=== PATIENT | female | born 1980 | race Caucasian/White ===

== ENCOUNTER 2017-08-31 09:10 | Outpatient (CLI) | payer MEDICAID ==
[~2017-08-31] VITALS: Ht 157.5 cm; Wt 73.3 kg
[~2017-08-31 09:10] MED LIST: CA C1TAB60 PO; FOL8 PO; METH250T PO; PRENATAL VITAMIN
[2017-08-31 09:31] VITALS: BP 110/62; PULSE 70; RESP 18; Ht 157.5 cm; Wt 73.3 kg
--- NOTE | 2017-08-31 10:06 | RADRPT ---
PROCEDURE: US OB biophysical profile. CLINICAL INDICATION: decreased movements, GDM TECHNIQUE: Multiple sonographic images of the pelvis were obtained. The images were reviewed on a PACS workstation. COMPARISON: No prior studies are available for comparison. FINDINGS: There is a single viable intrauterine gestation. Cardiac activity is present with 129 beats per min [place]. There is a vertex presentation. The placenta is anterior. There is no evidence of placental abruption. There is a normal amount of amniotic fluid with an AKI = 16.2 cm. Biophysical profile: movement 2/2 tone 2/2. breathing 2/2 AKI 2/2 Total 05/05 RPTAT: AA . IMPRESSION: Normal biophysical profile. . .Jethro Skaggs MD, MD Date Time Electronically viewed and signed by .Jethro Skaggs MD, MD on 08/31/2017 10:05 .S/
--- NOTE | 2017-08-31 11:21 | PN ---
Triage Information Date/Time Reason for visit: NST BPp Weeks of Gestation 33+ /Para 2/1 Diabetes: none, pre-gestational, gestational Diabetes management: diet controlled Hypertention: none Objective Vital Signs Date Time Temp Pulse Resp B/P Pulse Ox O2 Delivery O2 Flow Rate FiO2 08/31/17 09:31 70 18 110/62 Heart Rate: 140's Contractions: None Results/Medications Results 24 hrs Laboratory Tests Test 08/31/17 09:27 Bedside Glucose 110 Disposition: Discharge Assessment/Plan Patient will be followed up with her provider Precautions discussed with patient DALTON ENAMORADO M.D. Aug 31, 2017 11:21
--- NOTE | 2017-08-31 12:37 | TRIAGE ---
OB Triage Datetime Report Generated by CPN: 08/31/2017 12:37 Datetime: 08/31/2017 11:06 Stage of : OB Triage Datetime: 08/31/2017 10:19 Labor Evaluation Frequency: 0 Monitor Mode: External Pattern: Normal: <= 5 Contractions in 10 Minutes Resting Tone [place]: Relaxed Heart Rate FHR Baseline Rate: 135 Monitor Mode: External US Variability: Moderate 6-25 bpm Accelerations: 10X10 Decelerations: None Category: Category I Pain Assessment Pain Scale: 0 Pain Presence: None/Denies Pain Type: N/A Pain Goal: 3 Pain Relief Measures: Comfort Measures Datetime: 08/31/2017 10:13 Stage of : OB Triage Datetime: 08/31/2017 09:31 Bedside Blood Glucose: 110 Datetime: 08/31/2017 09:18 Stage of : OB Triage Assessment Type: Triage EGA: 33.1 Maternal Assessment Level of Consciousness: Fully Conscious DTR's/Clonus: DTRs 2+; No Clonus Headache: Denies Blurred Vision: No Respiratory Effort: Unlabored; Regular Rhythm; Equal Expansion Breath Sounds, Left: Clear and Equal Breath Sounds, Right: Clear and Equal Nausea/Vomiting: Denies RUQ Epigastric Pain: Denies Facial Edema: None Temperature Route: Axillary Fall Risk Assessment History of Falling: (0) No Secondary Diagnosis: (0) No Ambulatory Aid: (0) Bedrest/Nurse Assist IV Therapy: (0) No Gait: (0) Normal/Bedrest/Immobile Mental Status: (0) Oriented to Own Ability Fall Score: 0 Fall Risk Score Definition: No Risk: No action required Labor Evaluation Frequency: 0 Monitor Mode: External Pattern: Normal: <= 5 Contractions in 10 Minutes Resting Tone [place]: Relaxed Heart Rate FHR Baseline Rate: 135 Monitor Mode: External US Variability: Moderate 6-25 bpm Accelerations: 10X10 Decelerations: None Category: Category I Pain Assessment Pain Scale: 0 Pain Presence: None/Denies Pain Type: N/A Pain Goal: 3 Pain Relief Measures: Comfort Measures Datetime: 08/31/2017 09:16 Time of Arrival: 08/31/2017 08:56 Arrived By: Ambulatory Arrived From: Dr. Juan Chief Complaint: SENT FROM OFFICE ON 08/27 FOR NST/BPP DUE TO A1GDM. DENIES LEAKING, UC'S OR BLEE DING Movement: Present Contractions: Denies/Absent Rupture of Membranes: Denies Vaginal Bleeding: None Vaginal Discharge: Denies Recent Sexual Intercouse: Denies Abdominal Trauma: Not Applicable Patient Complaints: None Additional Patient Complaints: cerclage placed 04/16/17 Time Provider Notified: 08/31/2017 11:06 Provider Notified: FEI Initial Plan: MONITOR, BPP/NST
== END 2017-08-31 11:25 | disposition home or self-care (01) ==
LOC: OBT 09:10 → L-D 09:10 → OBT 11:25
PROVIDERS: ATTEND Obstetrics & Gynecology
DX: O24.410 Gestational diabetes mellitus in pregnancy, diet controlled (principal); Z3A.33 33 weeks gestation of pregnancy
CPT/HCPCS: 76818; 82962; Z7500; G0463

== ENCOUNTER 2017-09-07 09:07 | Outpatient (CLI) | payer MEDICAID ==
[~2017-09-07] VITALS: Ht 157.5 cm; Wt 73.7 kg
[2017-09-07 09:18] VITALS: BP 103/69; PULSE 69; Ht 157.5 cm; Wt 73.7 kg
--- NOTE | 2017-09-07 09:54 | RADRPT ---
PROCEDURE: Obstetrical ultrasound for biophysical profile CLINICAL INDICATION: Biophysical profile. . TECHNIQUE: Obstetrical ultrasound of the uterus for biophysical profile. Transabdominal views are obtained. COMPARISON: US PELVIS 08/31/2017 FINDINGS: Single intrauterine gestation. Presentation: Cephalic. Placenta: Anterior. No evidence of placental abruption. No evidence of placenta previa. breathing movement = 2/2 tone = 2/2 motion = 2/2 AKI = 2/2 AKI = 16.8 cm heart rate: 144 beats per minute IMPRESSION: Single intrauterine gestation. Biophysical profile 05/05 RPTAT: AADD .Ralph Kruse MD, MD Date Time Electronically viewed and signed by .Ralph Kruse MD, on 09/07/2017 09:54 .B/
--- NOTE | 2017-09-07 10:19 | PN ---
Triage Information Date/Time Reason for visit: NST BPP Weeks of Gestation 34+ /Para 2/1 Diabetes: gestational Diabetes management: diet controlled Hypertention: none Objective Vital Signs Date Time Temp Pulse Resp B/P Pulse Ox O2 Delivery O2 Flow Rate FiO2 09/07/17 09:18 98.0 69 103/69 Heart Rate: 140's Contractions: None Disposition: Discharge Assessment/Plan Precautions discussed with patient DALTON ENAMORADO M.D. Sep 07, 2017 10:19
--- NOTE | 2017-09-07 10:29 | TRIAGE ---
OB Triage Datetime Report Generated by CPN: 09/07/2017 10:29 Datetime: 09/07/2017 10:14 Stage of : OB Triage Datetime: 09/07/2017 10:08 Labor Evaluation Frequency: 0 Monitor Mode: External Resting Tone [place]: Relaxed Heart Rate FHR Baseline Rate: 135 Monitor Mode: External US Variability: Moderate 6-25 bpm Accelerations: 10X10 Decelerations: None Category: Category I Pain Assessment Pain Scale: 0 Pain Presence: None/Denies Pain Type: N/A Pain Goal: 3 Pain Relief Measures: Comfort Measures Datetime: 09/07/2017 10:04 Stage of : OB Triage Datetime: 09/07/2017 09:14 Stage of : OB Triage Assessment Type: Triage Maternal Assessment Level of Consciousness: Fully Conscious DTR's/Clonus: DTRs 2+; No Clonus Headache: Denies Blurred Vision: No Respiratory Effort: Unlabored; Regular Rhythm; Equal Expansion Breath Sounds, Left: Clear and Equal Breath Sounds, Right: Clear and Equal Nausea/Vomiting: Denies RUQ Epigastric Pain: Denies Facial Edema: None Temperature Route: Axillary Fall Risk Assessment History of Falling: (0) No Secondary Diagnosis: (0) No Ambulatory Aid: (0) Bedrest/Nurse Assist IV Therapy: (0) No Gait: (0) Normal/Bedrest/Immobile Mental Status: (0) Oriented to Own Ability Fall Score: 0 Fall Risk Score Definition: No Risk: No action required Labor Evaluation Frequency: X1 Monitor Mode: External Duration (sec)2399: 50 Quality: Mild Pattern: Normal: <= 5 Contractions in 10 Minutes Intensity IUP (mmHg): DENIES FEELING Resting Tone [place]: Relaxed Heart Rate FHR Baseline Rate: 135 Monitor Mode: External US Variability: Moderate 6-25 bpm Accelerations: 10X10 Decelerations: None Category: Category I Pain Assessment Pain Scale: 0 Pain Presence: None/Denies Pain Type: N/A Pain Goal: 3 Pain Relief Measures: Comfort Measures Datetime: 09/07/2017 09:13 Time of Arrival: 09/07/2017 09:00 EGA: 34.1 Arrived By: Ambulatory Arrived From: Home Chief Complaint: FOLLOW UP NST/BPP FOR GDM, DENIES BLEEDING OR LEAKING OF FLUID. OCCAS UC'S Movement: Present Contractions: Occasional Rupture of Membranes: Denies Vaginal Bleeding: None Vaginal Discharge: Denies Recent Sexual Intercouse: Denies Abdominal Trauma: Not Applicable Patient Complaints: None Additional Patient Complaints: CERCLAGE PLACED IN MARCH Time Provider Notified: 09/07/2017 10:04 Provider Notified: [email or web address] Initial Plan: MONITOR, NST/BPP Datetime: 08/31/2017 09:18 EGA: 33.1 Fall Score: 0 Fall Risk Score Definition: No Risk: No action required
== END 2017-09-07 10:25 | disposition home or self-care (01) ==
LOC: OBT 09:07 → L-D 09:08 → OBT 10:25
PROVIDERS: ATTEND Obstetrics & Gynecology
DX: O24.410 Gestational diabetes mellitus in pregnancy, diet controlled (principal); Z3A.34 34 weeks gestation of pregnancy
CPT/HCPCS: 76818; Z7500; G0463

== ENCOUNTER 2017-09-14 08:37 | Outpatient (CLI) | payer MEDICAID ==
[~2017-09-14] VITALS: Ht 157.5 cm; Wt 75.0 kg
[~2017-09-14 08:37] MED LIST changes: -METH250T PO
[2017-09-14 08:47] VITALS: BP 99/59; PULSE 71; Ht 157.5 cm; Wt 75.0 kg
--- NOTE | 2017-09-14 09:48 | RADRPT ---
PROCEDURE: US OB biophysical profile. CLINICAL INDICATION: Biophysical profile TECHNIQUE: Multiple sonographic images of the pelvis were obtained. The images were reviewed on a PACS workstation. COMPARISON: None FINDINGS: There is a single live intrauterine , in cephalic presentation. A normal heart rate i s identified measuring 146 beats per minute. The amniotic fluid index is within normal limits measur ing 9.7 cm. The post and there is grade 1-2 located anteriorly. Biophysical profile: movement 2/2 tone 2/2. breathing 2/2 AKI 2/2 Total 05/05 IMPRESSION: 1. Biophysical profile score of 88. 2. Single live intrauterine in cephalic presentation with normal heart rate of 146 b pm. 3. Normal amniotic fluid index of 9.7 cm. RPTAT: AAPP Physician José Miguel Date Time Electronically viewed and signed by Physician José Miguel on 09/14/2017 09:48 SHIRLEY/
--- NOTE | 2017-09-14 10:47 | PN ---
Triage Information Date/Time Reason for visit: Weeks of Gestation 35w 1d /Para Diabetes: gestational Objective Vital Signs Date Time Temp Pulse Resp B/P Pulse Ox O2 Delivery O2 Flow Rate FiO2 09/14/17 08:47 97.7 71 99/59 Heart Rate Comments reactive Contractions: None Results/Medications Results 24 hrs Laboratory Tests Test 09/14/17 08:41 Bedside Glucose 90 Imaging Results BPP 8/8, AKI 9.7cm Disposition: Discharge CLEMENTE CASTILLO Sep 14, 2017 10:47
--- NOTE | 2017-09-14 11:50 | TRIAGE ---
OB Triage Datetime Report Generated by CPN: 09/14/2017 11:45 Datetime: 09/14/2017 10:43 Stage of : OB Triage Datetime: 09/14/2017 10:39 Stage of : OB Triage Datetime: 09/14/2017 10:21 Stage of : OB Triage Datetime: 09/14/2017 10:03 Labor Evaluation Frequency: 0 Monitor Mode: External Resting Tone [place]: Relaxed Heart Rate FHR Baseline Rate: 135 Monitor Mode: External US Variability: Moderate 6-25 bpm Accelerations: 10X10 Decelerations: None Category: Category I Pain Assessment Pain Scale: 0 Pain Presence: None/Denies Pain Type: N/A Pain Goal: 3 Pain Relief Measures: Comfort Measures Datetime: 09/14/2017 09:53 Stage of : OB Triage Datetime: 09/14/2017 08:42 Stage of : OB Triage Assessment Type: Triage Maternal Assessment Level of Consciousness: Fully Conscious DTR's/Clonus: DTRs 2+; No Clonus Headache: Denies Blurred Vision: No Respiratory Effort: Unlabored; Regular Rhythm; Equal Expansion Breath Sounds, Left: Clear and Equal Breath Sounds, Right: Clear and Equal Nausea/Vomiting: Denies RUQ Epigastric Pain: Denies Facial Edema: None Temperature Route: Axillary Fall Risk Assessment History of Falling: (0) No Secondary Diagnosis: (0) No Ambulatory Aid: (0) Bedrest/Nurse Assist IV Therapy: (0) No Gait: (0) Normal/Bedrest/Immobile Mental Status: (0) Oriented to Own Ability Fall Score: 0 Fall Risk Score Definition: No Risk: No action required Labor Evaluation Frequency: 0 Monitor Mode: External Pattern: Normal: <= 5 Contractions in 10 Minutes Resting Tone [place]: Relaxed Heart Rate FHR Baseline Rate: 140 Monitor Mode: External US Variability: Moderate 6-25 bpm Accelerations: 10X10 Decelerations: None Category: Category I Pain Assessment Pain Scale: 0 Pain Presence: None/Denies Pain Goal: 3 Pain Relief Measures: Comfort Measures Datetime: 09/14/2017 08:41 Time of Arrival: 09/14/2017 08:25 EGA: 35.1 Arrived By: Ambulatory Arrived From: Home Chief Complaint: FOLLOW UP NST/BPP FOR GDM, DENIES LEAKING, BLEEDING OR UC'S Movement: Present Contractions: Denies/Absent Rupture of Membranes: Denies Vaginal Bleeding: None Vaginal Discharge: Denies Recent Sexual Intercouse: Denies Abdominal Trauma: Not Applicable Patient Complaints: None Time Provider Notified: 09/14/2017 10:43 Provider Notified: JONATHAN Initial Plan: MONITOR, BPP Datetime: 09/07/2017 09:14 Fall Score: 0 Fall Risk Score Definition: No Risk: No action required Datetime: 09/07/2017 09:13 EGA: 34.1 Datetime: 08/31/2017 09:18 EGA: 33.1 Fall Score: 0 Fall Risk Score Definition: No Risk: No action required
== END 2017-09-14 10:55 | disposition home or self-care (01) ==
LOC: OBT 08:37 → L-D 08:37 → OBT 10:55
PROVIDERS: ATTEND Obstetrics & Gynecology
DX: O24.419 Gestational diabetes mellitus in pregnancy, unspecified control (principal); O09.523 Supervision of elderly multigravida, third trimester; Z3A.36 36 weeks gestation of pregnancy
CPT/HCPCS: 76818; 82962; Z7500; G0463

== ENCOUNTER 2017-10-12 12:40 | Inpatient (IN) | END 2017-10-15 16:08 | disposition home or self-care (01) | DRG 765 ==